=== PATIENT | female | born 1950 | race Caucasian/White ===

== ENCOUNTER 2019-04-29 12:50 | Emergency (ER) | payer MEDICARE ==
[~2019-04-29] VITALS: Ht 162.6 cm; Wt 72.6 kg
--- OUTSIDE RECORDS SUMMARY | 2019-04-29 12:53 | XMS REPORT | Summary of Care ---
Author Author [facility] Organization [facility] Address Unknown Phone Unavailable Encounter HQ Encntr_alias(FIN) [id number] Date(s): 04/14/16 - 04/14/16 [facility] [address] [place] [address]- [phone] Discharge Disposition: Home Attending Physician: Kayode Stevens MD Referring Physician: Kayode Stevens MD Vital Signs No data available for this section Problem List No data available for this section Allergies, Adverse Reactions, Alerts No data available for this section Medications No data available for this section Results No data available for this section Immunizations No data available for this section Procedures No data available for this section Social History No data available for this section Assessment and Plan No data available for this section
--- OUTSIDE RECORDS SUMMARY | 2019-04-29 12:53 | XMS REPORT | Summary of Care ---
Author Author [facility] Outpatient Imaging [facility] Outpatient Imaging [facility] Address Unknown Phone Unavailable Encounter HQ Encntr_alias(FIN) [id number] Date(s): 05/14/16 - 05/14/16 [facility] Outpatient Imaging [facility] [address] [facility], [address] [place] [phone] Discharge Disposition: Home Attending Physician: Jaime Cuello MD Vital Signs No data available for [...]
--- OUTSIDE RECORDS SUMMARY | 2019-04-29 12:53 | XMS REPORT | Summary of Care ---
Author Author [facility] [place] Organization [facility] [place] Address Unknown Phone Unavailable Encounter HQ Encntr_alias(FIN) [id number] Date(s): 05/19/16 - 05/19/16 [facility] [place] [address] [place] [phone] Discharge Disposition: Home Attending Physician: Jaime Cuello [...]
--- OUTSIDE RECORDS SUMMARY | 2019-04-29 12:53 | XMS REPORT | Continuity of Care Document ---
Author Author Darrell cruz Organization Interface Address Unknown Phone Unavailable Problems Problem Status Onset Date Classification Date Reported Comments Source R06.02=SHORTNESS OF BREATH Active 04/06/2016 [facility] SHORTNESS OF BREATH Active [facility] Medications Medication Details Route Status Patient Instructions Ordering Provider Order Date Source Allergies, Adverse Reactions, Alerts Substance Category Reaction Severity Reaction type Status Date Reported Comments Source Immunizations Immunization Date Given Site Status Last Updated Comments Source Results Order Name Results Value Reference Range Date Interpretation Comments Source Chest 2 views DX Chest 2 views DX EXAM: XR CHEST 2 VIEWS DATE: 04/21/2018 9:24 AM CDT INDICATION: - J44.1 Chronic obstructive pulmonary disease with (acute) exacerbation COMPARISON: Chest CT 04/14/2016 TECHNIQUE: PA and lateral chest radiographs FINDINGS: Lungs are hyperinflated compatible with emphysema with biapical pleural- parenchymal scarring. No focal pulmonary or pleural-based abnormality is identified. The cardiomediastinal silhouette is normal. No acute osseous abnormality is identified. IMPRESSION: 1. Emphysematous changes with biapical pleural-parenchymal scarring. No acute process seen. 04/21/2018 - - Read by: Chas Stokes MD Dictated Date/time: 04/21/18 09:38 Electronically Signed by: Chas Stokes MD 04/21/18 09:54 FINAL REPORT [facility] Spine cervical wo contrast MRI Spine cervical wo contrast MRI MRI CERVICAL SPINE WITHOUT CONTRAST TECHNIQUE: Multiplanar multisequence imaging of the cervical spine was performed without administration of intravenous gadolinium. COMPARISON: 05/14/2016 radiograph exam. FINDINGS: Multilevel disc desiccation is seen. C2-C3: Unremarkable. C3-C4: No central canal stenosis. Minimal bilateral foraminal osteophytes without foraminal stenosis. C4-C5: Mild bilateral facet osteoarthritis. No central canal stenosis is present. There is mild left foraminal stenosis. C5-C6: 2.8 mm thick ligamenta flava redundancy. Bilateral foraminal osteophytes and uncovertebral joint arthrosis are present, with severe bilateral foraminal stenosis. Minimal posterior osteophytes are present with mild central canal stenosis. No significant cord indentation. C6-C7: 1.9 mm posterior disc osteophyte complex is seen with mild central canal stenosis. No cord indentation is seen. Moderate to severe left foraminal stenosis and moderate right foraminal stenosis are present due to osteophytes and UVJ arthrosis. C7-T1: No central canal stenosis. Mild bilateral facet osteoarthritis with mild left foraminal stenosis. The cervical cord signal is unremarkable without MRI evidence of myelomalacia. IMPRESSION: 1. Multilevel disc degenerative disease and spondylosis. 2. C4-C5 mild left foraminal stenosis. 3. C5-C6 and C6-C7 mild central canal stenosis without cord indentation. Moderate to severe foraminal stenosis at both levels as above. 05/19/2016 - - Read by: Stalin Jo MD Dictated Date/time: 05/19/16 10:35 Electronically Signed by: Stalin Jo MD 05/19/16 10:55 FINAL REPORT [facility] Shoulder wo contrast MRI Shoulder wo contrast MRI EXAMINATION: MR left shoulder without contrast HISTORY: M25.512 Pain in left shoulder; left subacromial subdeltoid bursitis FINDINGS: Radiographs dated 05/14/2016 are reviewed. Multiplanar, multisequence magnetic resonance imaging of the left shoulder is performed with a local coil. Transverse, oblique coronal, and oblique sagittal images are obtained. Biceps: The long head of biceps remains attached at the superior bicipital labral complex without dislocation or subluxation. Labrum: The glenoid labrum is intact on this non arthrographic examination. Rotator cuff tendons: There is mild supraspinatus and infraspinatus tendinosis with increased intratendinous signal, but no partial thickness or full-thickness tear. The teres minor and subscapularis tendons are normal without tendinopathy or tear. Acromio-osseous outlet: There is a type II acromion without a subacromial spur. The coracoacromial and coracoclavicular ligaments are intact. Muscles: There is normal signal intensity and muscle bulk of the rotator cuff musculature. Cartilage: The acromioclavicular joint appears normal. There is no focal glenohumeral chondral defect. Bone: There are no acute fractures. There is minimal nonspecific enthesopathic subcortical cyst formation along the greater tuberosity. There are no bone marrow replacing lesions. Soft tissue: There is a small amount of fluid in the subacromial-subdeltoid bursa. A physiologic amount of fluid is present in the glenohumeral joint. IMPRESSION: 1. Mild left supraspinatus and infraspinatus tendinosis with increased intratendinous signal, but no partial thickness tear, full-thickness tear, or rotator cuff muscular atrophy. 2. Left subacromial subdeltoid bursitis. 3. Intact left glenoid labrum without focal glenohumeral chondral defect. 05/19/2016 - - Read by: Marshall Armendariz MD Dictated Date/time: 05/19/16 10:33 Electronically Signed by: Marshall Armendariz MD 05/19/16 10:38 FINAL REPORT [facility] [place] Spine thoracic 3 views DX Spine thoracic 3 views DX EXAM: XR THORACIC SPINE 2 VIEWS DATE: 05/14/2016 at 1607 hours INDICATION: M79.2 Neuralgia and neuritis, unspecified COMPARISON: Chest CT of 04/14/2016 TECHNIQUE: AP and lateral radiographs of the thoracic spine FINDINGS: Vertebral body heights are overall preserved, and no spondylolisthesis is identified. Mild rightward curvature of the midthoracic spine, centered at T9 is slightly more evident compared with the prior chest CT. Tiny multilevel osteophytes are present, with mild disc height loss at the upper thoracic spine. Paraspinal soft tissue contours are normal, and the heart size is normal. IMPRESSION: Tiny multilevel osteophytes and mild rightward curvature of the midthoracic spine. 05/14/2016 - - Read by: Starr Gamboa MD Dictated Date/time: 05/15/16 08:39 Electronically Signed by: Starr Gamboa MD 05/15/16 08:40 FINAL REPORT [facility] Shoulder series DX Shoulder series DX EXAM: XR LEFT SHOULDER 3 VIEWS DATE: 05/14/2016 at 1607 hours INDICATION: M79.2 Neuralgia and neuritis, unspecified COMPARISON: Chest CT dated 04/14/2016 TECHNIQUE: AP views in internal and external rotation, and a scapular-Y view of the left shoulder. FINDINGS: The bones are osteopenic. No acute fracture or malalignment is identified. No evidence of joint space narrowing or sclerosis. No subacromial narrowing. No soft tissue abnormality is identified. IMPRESSION: Osteopenia without other bony abnormality. 05/14/2016 - - This report was dictated by a State Attorney/Fellow. I have personally reviewed the images as well as the Resident's interpretation and agree with the findings. Read by: Jignesh Black MD Resident: Jignesh Black MD Dictated Date/time: 05/15/16 08:17 Electronically Signed by: Starr Gamboa MD 05/15/16 12:22 FINAL REPORT [facility] Spine cervical 2 or 3 view DX Spine cervical 2 or 3 view DX EXAM: XR CERVICAL SPINE 3 VIEWS DATE: 05/14/2016 4:06 PM CDT INDICATION: M79.2 Neuralgia and neuritis, unspecified COMPARISON: None available TECHNIQUE: AP, open-mouth odontoid and lateral radiographs of the cervical spine show from the skull base through the cervicothoracic junction. FINDINGS: Vertebral body heights and alignment are preserved throughout. Disc height loss is present at C5-6 with a posterior disc osteophyte complex at this level, and uncovertebral hypertrophy. Minimal disc height loss is present at the remaining levels. Mild multilevel facet hypertrophy is present. IMPRESSION: Degenerative disc disease with uncovertebral hypertrophy and small posterior disc osteophyte complex at C5-6. 05/14/2016 - - Read by: Starr Gamboa MD Dictated Date/time: 05/15/16 08:37 Electronically Signed by: Starr Gamboa MD 05/15/16 08:38 FINAL REPORT [facility] Chest w contrast CT Chest w contrast CT Study: CT CHEST WITH CONTRAST Clinical Indication: Shortness of breath; cough Comparison: None Technique: Axial images with sagittal and coronal reconstructions were obtained following nonionic intravenous contrast, Omnipaque [address] Radiation Dose: MAN=224 mGy-cm. FINDINGS: The lungs are emphysematous. No mass or airspace consolidation is identified. No endobronchial lesion is identified. Minor scarring involves the apex of each upper lobe associated with pleural thickening. Cardiac size is normal. There are minor coronary artery calcifications. No hilar or mediastinal adenopathy is identified. No pleural or pericardial effusion is seen. Images of the upper abdomen are remarkable for fatty liver which contains benign cysts. IMPRESSION: 1. No acute abnormality. 2. Emphysema with minor biapical scarring. 3. Minor coronary artery constipation. 4. Fatty liver. SL: [id number] 04/14/2016 - - Read by: Colton Leung MD Dictated Date/time: 04/15/16 07:46 Electronically Signed by: Colton Leung MD 04/15/16 07:51 FINAL REPORT [facility] Vital Signs Vital Sign Value Date Comments Source Encounters Location Location Details Encounter Type Encounter Number Reason For Visit Attending Provider ADM Date DC Date Status Source [facility] Outpatient [id number] Kayode Stevens 04/14/2016 04/15/2016 [facility] [place] [facility] [id number] Jaime Cuello 05/14/2016 [facility] [place] [facility] [id number] Jaime Cuello 05/19/2016 05/20/2016 [facility] [place] [facility] [id number] Jaime Cuello 04/21/2018 [facility] [place] Procedures Procedure Code Date Perfomer Comments Source
--- OUTSIDE RECORDS SUMMARY | 2019-04-29 12:53 | XMS REPORT | Summary of Care ---
Author Author [facility] Outpatient Imaging [facility] Address Unknown Phone Unavailable Encounter HQ Encntr_alias(FIN) [id number] Date(s): 04/21/18 - 04/21/18 [facility] Outpatient Imaging [facility] [address] [facility], [address] [place] [phone] Discharge Disposition: Home or Self Care Attending Physician: Jaime Cuello MD Vital Signs [...]
== END 2019-04-29 13:56 | disposition left against medical advice (07) ==
LOC: ER 12:50
DX: R53.83 Other fatigue (principal)

== ENCOUNTER → 2023-02-09 | Outpatient (CLI) | payer MEDICARE | LOC: MAMMO 12:49 | PROVIDERS: ATTEND Internal Medicine | DX: Z12.31 Encounter for screening mammogram for malignant neoplasm of breast (principal) | CPT/HCPCS: 77067 ==